=== PATIENT | female | born 1980 | race Caucasian/White ===

== ENCOUNTER → 2016-09-01 | Outpatient (CLI) | payer BC ==
[~2016-09-01] MED LIST: AMOXICILLIN 50500 MG PO; ASPIR-LOW81 MG PO; FLEXERIL10 MG PO; PRENATAL VITAMI1 TA5 PO; SLOW FE; [UNRECOGNIZED DRUG - OTHER]; prometrium
[2016-09-01 14:23] LABS: HEMATOCRIT 43.8 % (37.0-47.0); HEMOGLOBIN 14.4 g/dl (12.5-16.0); MEAN CELL VOLUME 90 fl (80.0-100.0); MEAN CORPUSCULAR HEMOGLOBIN 30 pg (27.0-31.0); MEAN CORPUSCULAR HGB CONC 33 g/dl (33.0-37.0); MEAN PLATELET VOLUME 10.4 fl (7.4-10.4); PLATELET COUNT 238 K/mm3 (130-400); RED BLOOD COUNT 4.85 M/mm3 (4.10-5.30); REDCELL DISTRIBUTION WIDTH-CV 12.5 % (11.5-14.5); WHITE BLOOD COUNT 5.9 K/mm3 (4.8-10.8)
[2016-09-01 14:31] LABS: CALCIUM 8.9 mg/dL (8.4-10.2); CREATININE, serum 0.84 mg/dL (0.52-1.25); POTASSIUM 3.7 mmol/L (3.4-5.0)
== END ==
LOC: COL.LAB 13:53
PROVIDERS: Specialist
DX: Z01.812 Encounter for preprocedural laboratory examination (principal)

== ENCOUNTER 2022-03-10 08:23 | Emergency (ER) | payer BC ==
[~2022-03-10] VITALS: Ht 165.1 cm; Wt 90.0 kg
[2022-03-10 08:29] VITALS: TEMP 98.5
[2022-03-10 09:16] LABS: BASO % 0.5 % (0.0-2.0); EOS # 0.1 K/mm3 (0.0-0.7); EOS % 1.2 % (0.0-4.0); GRAN # 3.8 K/mm3 (1.4-6.5); GRAN % 63.2 % (42.2-75.2); HEMATOCRIT 43.6 % (37.0-47.0); HEMOGLOBIN 14.1 g/dl (12.5-16.0); LYMPH # 1.7 K/mm3 (1.2-3.4); LYMPH % 28.2 % (20.0-51.0); MEAN CELL VOLUME 91 fl (80.0-100.0); MEAN CORPUSCULAR HEMOGLOBIN 29 pg (27-31); MEAN CORPUSCULAR HGB CONC 32 g/dl (33.0-37.0); MEAN PLATELET VOLUME 9.9 fl (7.4-10.4); MONO # 0.4 K/mm3 (0.1-0.6); MONO % 6.7 % (1.7-9.3); PLATELET COUNT 266 K/mm3 (130-400); RED BLOOD COUNT 4.82 M/mm3 (4.10-5.30); REDCELL DISTRIBUTION WIDTH-CV 12.6 % (11.5-14.5)
[2022-03-10 09:31] LABS: ALANINE AMINOTRANSFERASE 67 U/L (0-55); ALBUMIN 3.5 gm/dL (3.5-5.0); ALKALINE PHOSPHATASE 90 U/L (40-150); ANION GAP 10 mmol/L (7-16); AST,SGOT 60 U/L (5-34); BILIRUBIN,TOTAL 0.3 mg/dL (0.2-1.2); BLOOD UREA NITROGEN 15 mg/dL (7-19); CALCIUM 8.6 mg/dL (8.4-10.2); CARBON DIOXIDE 22 mmol/L (22-29); CHLORIDE 105 mmol/L (98-107); CREATININE, serum 0.73 mg/dL (0.57-1.11); GLUCOSE 102 mg/dL (70-99); POTASSIUM 4.5 mmol/L (3.5-4.5); SODIUM 137 mmol/L (136-145); TOTAL PROTEIN 7.1 gm/dL (6.2-8.1)
[2022-03-10 09:40] LABS: TROPONIN-I < 0.010 ng/mL (0.00-0.033)
[2022-03-10 10:52] VITALS: BP 112/88; PULSE 84
== END 2022-03-10 10:54 | disposition home or self-care (01) ==
LOC: COL.ER 08:23
PROVIDERS: Personal Emergency Response Attendant
DX: R07.89 Other chest pain (principal); R55 Syncope and collapse; Z28.310 Unvaccinated for COVID-19
CPT/HCPCS: J7030